=== PATIENT | male | born 1945 | race Caucasian/White ===

== ENCOUNTER → 2017-10-15 | Outpatient (CLI) | payer MEDICARE, OTHER ==
[~2017-10-15] MED LIST: ACIDOPHILUS1 EAC2 PO; AMIO200 PO; ASPI81CH PO; ATOR10 PO; AZIT250 PO; CALCAVITD PO; CEPH500 PO; CIPR500 PO; Coumadin5 MG PO; DIPATR PO; ELIQUIS5 MG PO; ERYT.5TO LEFTEYE; ETOD400 PO; FISH1000 PO; HYDGUAL120 PO; LEVSOD50 PO; LODINE; LOPE2C; MULVITMIND PO; OMEP40CA12 PO; PYRI100 PO; Prinivil5 MG PO; UBID10 PO
== END | disposition home or self-care (01) ==
LOC: LAB EV 08:50
DX: E55.9 Vitamin D deficiency, unspecified (principal)
CPT/HCPCS: 36415; 82306

== ENCOUNTER → 2019-06-18 | Outpatient (CLI) | payer MEDICARE, OTHER ==
[~2019-06-18] MED LIST changes: +ASPI325EC PO; +CALCIUM CIT 311 EACH PO; +Co Q-1010 MG PO; +Complex B-1001 EACH PO; +DAILY VALUE1 EACH PO; +FISH OIL 1,0001 EAC1 PO; +LACT PO; +LEVSOD25 PO; +OMEPRAZOLE20 MG PO; +Prinivil10 MG PO; +VITAMIN D31000 UNIT PO
[2019-06-19 10:32] LABS: Stool Occult Bld Immuno 1 Positive (NEGATIVE); Stool Occult Bld Immuno 2 Positive (NEGATIVE)
== END | disposition home or self-care (01) ==
LOC: LAB EV 10:30
PROVIDERS: Internal Medicine Gastroenterology
DX: R19.5 Other fecal abnormalities (principal); Z86.010 Personal history of colon polyps
CPT/HCPCS: G0328

== ENCOUNTER → 2019-06-19 | Outpatient (CLI) | payer MEDICARE, OTHER ==
[2019-06-20 15:13] LABS: Stool Occult Bld Immuno 1 Positive (NEGATIVE)
== END | disposition home or self-care (01) ==
LOC: LAB SHORT 10:45 → LAB EV 10:45
PROVIDERS: Internal Medicine Gastroenterology
DX: R19.5 Other fecal abnormalities (principal); Z86.010 Personal history of colon polyps
CPT/HCPCS: G0328

== ENCOUNTER 2019-06-21 08:50 | Day surgery (SDC) | payer MEDICARE, OTHER ==
[~2019-06-21] VITALS: Ht 177.8 cm; Wt 84.2 kg
== END 2019-06-21 11:52 | disposition home or self-care (01) ==
LOC: ORSCSDS 08:50
PROVIDERS: Internal Medicine Gastroenterology
PROC: 0DBE8ZX Excision of Large Intestine, Via Natural or Artificial Opening Endoscopic, Diagnostic (ICD-10-PCS; principal; 2019-06-21 10:15)
DX: R19.5 Other fecal abnormalities (principal); Z86.010 Personal history of colon polyps; K57.30 Diverticulosis of large intestine without perforation or abscess without bleeding; K52.9 Noninfective gastroenteritis and colitis, unspecified; I10 Essential (primary) hypertension; E78.5 Hyperlipidemia, unspecified; E03.9 Hypothyroidism, unspecified; Z79.899 Other long term (current) drug therapy; Z79.82 Long term (current) use of aspirin
CPT/HCPCS: 88305; J2704; J7120

== ENCOUNTER → 2019-07-05 | Outpatient (CLI) | payer MEDICARE, OTHER | END | disposition home or self-care (01) | LOC: PLD 08:27 → LAB SHORT 08:27 | DX: L57.0 Actinic keratosis (principal) | CPT/HCPCS: 88305 ==

== ENCOUNTER 2019-07-19 12:20 | Day surgery (SDC) | payer MEDICARE, OTHER ==
[~2019-07-19] VITALS: Ht 177.8 cm; Wt 85.0 kg
== END 2019-07-19 15:00 | disposition home or self-care (01) ==
LOC: ORSCSDS 12:20
PROVIDERS: Internal Medicine Gastroenterology
PROC: 0DJ08ZZ Inspection of Upper Intestinal Tract, Via Natural or Artificial Opening Endoscopic (ICD-10-PCS; principal; 2019-07-19 14:30)
DX: R19.5 Other fecal abnormalities (principal); K57.10 Diverticulosis of small intestine without perforation or abscess without bleeding; K44.9 Diaphragmatic hernia without obstruction or gangrene; I10 Essential (primary) hypertension; E78.5 Hyperlipidemia, unspecified; I48.91 Unspecified atrial fibrillation; E03.9 Hypothyroidism, unspecified; Z79.899 Other long term (current) drug therapy
CPT/HCPCS: J2704; J7120

== ENCOUNTER → 2021-07-17 | Outpatient (CLI) | payer MEDICARE, OTHER | END | disposition home or self-care (01) | LOC: LAB SHORT 13:20 | DX: R05.3 Chronic cough (principal) | CPT/HCPCS: 87070; 87205 ==

== ENCOUNTER → 2021-08-10 | Outpatient (CLI) | payer MEDICARE, OTHER ==
[2021-08-10 14:06] LABS: BASOPHILS ABSOLUTE AUTO 0.03 K/mm3 (0.00-0.23); BASOPHILS PERCENT AUTO 1 % (0-2); EOSINOPHILS ABSOLUTE AUTO 0.03 K/mm3 (0.00-0.68); EOSINOPHILS PERCENT AUTO 1 % (0-6); Hematocrit 49.6 % (37.0-53.0); Hemoglobin 16.4 g/dL (13.5-17.5); IMMATURE GRAN ABSOLUTE AUTO 0.03 K/mm3 (0.00-0.10); IMMATURE GRAN PERCENT AUTO 1 % (0-1); LYMPHOCYTES ABSOLUTE AUTO 0.72 K/mm3 (0.84-5.20); LYMPHOCYTES PERCENT AUTO 11 % (21-46); MONOCYTES ABSOLUTE AUTO 1.02 K/mm3 (0.16-1.47); MONOCYTES PERCENT AUTO 16 % (4-13); Mean Corpuscular HGB 29.8 pg (26.0-34.0); Mean Corpuscular HGB Conc 33.1 g/dL (31.5-36.5); Mean Corpuscular Volume 90 fL (80-100); Mean Platelet Volume 10.4 fL (9.1-12.4); NEUTROPHILS ABSOLUTE AUTO 4.52 K/mm3 (1.96-9.15); NEUTROPHILS PERCENT AUTO 71 % (41-73); Platelet Count 209 K/mm3 (150-400); RDW Coefficient Variation 13.3 % (11.7-14.2); RDW Standard Deviation 44.6 fL (35.1-46.3); White Blood Cell Count 6.35 K/mm3 (4.00-11.30)
[2021-08-10 14:49] LABS: Alanine Aminotransfer (ALT/SGP 36 U/L (12-78); Albumin, Blood 3.5 g/dL (3.4-5.0); Albumin/Globulin Ratio 0.9 (0.8-1.8); Alk Phos 101 U/L (40-126); Anion Gap 8 mmol/L (6-16); Aspartate Aminotrans (AST/SGOT 26 U/L (12-37); Bilirubin, Total 0.8 mg/dL (0.1-1.0); Blood Urea Nitrogen 20 mg/dL (8-24); Bun/Creatinine Ratio 15.4 (12.0-20.0); CO2, Blood 27 mmol/L (21-32); Calcium, Blood 9.2 mg/dL (8.5-10.1); Chloride, Blood 105 mmol/L (98-108); Globulin, Blood 3.9 g/dL (2.2-4.0); Glomerular Filtration Rate 54 (60-); Glucose, Blood 118 mg/dL (70-99); Potassium, Blood 3.9 mmol/L (3.5-5.5); Sodium, Blood 140 mmol/L (136-145); Thyroid Stimulating Hormone 0.859 uIU/mL (0.360-4.800); Total Protein, Blood 7.4 g/dL (6.4-8.2)
[2021-08-10 14:53] LABS: Troponin I <0.017 ng/mL (0.000-0.040)
== END ==
LOC: LAB 13:57 → LAB SHORT 13:57
PROVIDERS: Chiropractor
DX: R07.9 Chest pain, unspecified (principal); R53.83 Other fatigue
CPT/HCPCS: 80053; 83880; 84443; 84484; 85025; 85379

== ENCOUNTER 2022-02-28 06:23 | Day surgery (SDC) | payer MEDICARE, OTHER ==
[~2022-02-28] VITALS: Ht 177.8 cm; Wt 89.0 kg
[~2022-02-28 06:23] MED LIST changes: +ELIQUIS5 M2 PO; +GUAI600T33 PO; +LOSA25 PO; +METO25ER PO; +Zinc Gluconate100 MG PO
[2022-02-28 09:07] LABS: CHOL/HDL RATIO 3.3; Cholesterol 135 mg/dL (50-200); HDL Cholesterol 41 mg/dL (>39); LDL/HDL RATIO 2.2; Low Density Lipoprotein Chol 89 mg/dL (0-110); Triglycerides 24 mg/dL (30-160); Very Low Density Lipoprot Chol 4 mg/dL (6-32)
[2022-02-28] MEDS ORDERED: ATOR40TA PO (10:12)
[2022-02-28] MEDS ORDERED: LOSA50 PO (10:12)
[2022-02-28] MEDS ORDERED: CLOP75 PO (10:13)
[2022-02-28] MEDS ORDERED: PANT20 PO (10:13)
[2022-02-28] MEDS ORDERED: ST. JOSEPH ASPI81 MG PO (10:13)
[2022-02-28] MEDS ORDERED: NITR.4SL SL (10:14)
--- NOTE | 2022-02-28 12:58 | NUR ---
2ND EKG SHOWN TO DR DUMONT. PT OKAYED TO BE DISCHARGED HOME, PT DENIES CHEST PAIN.
--- NOTE | 2022-02-28 13:09 | NUR ---
PT UP TO BATHROOM PER SELF. DENIES CHEST PAIN. HERE HELPING PT GET DRESSED.
--- NOTE | 2022-02-28 13:26 | NUR ---
DISCHARGE WENT OVER WITH AND WITH PT, BOTH VERBALIZE UNDERSTANDING OF INSTRUCTIONS. SALINE LOCK REMOVED WITH CATHETER INTACT. TR BAND REMOVED, SITE STABLE. AREA CKLEANSED AND CLOTH DOT PLACED. ARM BOARD BACK ON AND PT INSTRUCTED TO WEAR FOR 2 DAYS. PT AGREEABLE WITH DISCHARGE INSTRUCTIONS.
== END 2022-02-28 13:25 | disposition home or self-care (01) ==
LOC: MHTC 06:23
PROVIDERS: Internal Medicine Cardiovascular Disease
DX: I25.110 Atherosclerotic heart disease of native coronary artery with unstable angina pectoris (principal); I10 Essential (primary) hypertension; I48.11 Longstanding persistent atrial fibrillation; Z79.01 Long term (current) use of anticoagulants; E78.5 Hyperlipidemia, unspecified
CPT/HCPCS: 76937; 80061; 85347; 93005; 93010; 93306; 93454; 99152; 99153; A9270; C1725; C1769; C1874; C1887; C1894; C9600; J1644; J2250; J3010; J7030; J7040; Q9967

== ENCOUNTER 2025-09-10 02:45 | Emergency (ER) | payer MEDICARE, OTHER ==
[~2025-09-10] VITALS: Ht 177.8 cm; Wt 88.5 kg
[~2025-09-10 02:45] MED LIST changes: +ATOR40TA PO; +CLOP75 PO; +LOSA50 PO; +NITR.4SL SL; +PANT20 PO; +ST. JOSEPH ASPI81 MG PO
[2025-09-10 03:46] LABS: BASOPHILS ABSOLUTE AUTO 0.03 K/mm3 (0.00-0.23); BASOPHILS PERCENT AUTO 1 % (0-2); EOSINOPHILS ABSOLUTE AUTO 0.18 K/mm3 (0.00-0.68); EOSINOPHILS PERCENT AUTO 3 % (0-6); Hematocrit 46.9 % (37.0-53.0); Hemoglobin 14.7 g/dL (13.5-17.5); IMMATURE GRAN ABSOLUTE AUTO 0.01 K/mm3 (0.00-0.10); IMMATURE GRAN PERCENT AUTO 0 % (0-1); LYMPHOCYTES ABSOLUTE AUTO 1.03 K/mm3 (0.84-5.20); LYMPHOCYTES PERCENT AUTO 16 % (21-46); MONOCYTES ABSOLUTE AUTO 0.79 K/mm3 (0.16-1.47); MONOCYTES PERCENT AUTO 13 % (4-13); Mean Corpuscular HGB Conc 31.3 g/dL (31.5-36.5); Mean Corpuscular Volume 94 fL (80-100); NEUTROPHILS ABSOLUTE AUTO 4.25 K/mm3 (1.96-9.15); NEUTROPHILS PERCENT AUTO 67 % (41-73); NRBC ABSOLUTE 0.00 K/mm3 (0.00-0.02); NRBC Auto 0.0 /100 WBC (0.0-0.2); Platelet Count 203 K/mm3 (150-400); RDW Coefficient Variation 13.8 % (11.7-14.2); RDW Standard Deviation 46.8 fL (35.1-46.3)
[2025-09-10 04:04] LABS: Alanine Aminotransfer (ALT/SGP 39.0 U/L (12-78); Albumin, Blood 3.2 g/dL (3.4-5.0); Albumin/Globulin Ratio 1.0 (0.8-1.8); Anion Gap 8.0 mmol/L (3-11); Aspartate Aminotrans (AST/SGOT 29.0 U/L (12-37); Bilirubin, Total 0.6 mg/dL (0.1-1.0); Blood Urea Nitrogen 21.0 mg/dL (8-24); CO2, Blood 24.0 mmol/L (21-32); Calcium, Blood 9.4 mg/dL (8.5-10.1); Chloride, Blood 110.0 mmol/L (98-108); Creatinine, Blood 1.04 mg/dL (0.60-1.20); Globulin, Blood 3.2 g/dL (2.2-4.0); Glucose, Blood 116.0 mg/dL (70-99); Magnesium, Blood 2.0 mg/dL (1.6-2.4); Potassium, Blood 3.9 mmol/L (3.5-5.5); Sodium, Blood 138.0 mmol/L (136-145); Total Protein, Blood 6.4 g/dL (6.4-8.2)
[2025-09-10 04:55] VITALS: BP 130/82
== END 2025-09-10 04:56 | disposition home or self-care (01) ==
LOC: ER 02:45
PROVIDERS: Student in an Organized Health Care Education/Training Program
DX: R07.89 Other chest pain (principal); T46.7X5A Adverse effect of peripheral vasodilators, initial encounter; I10 Essential (primary) hypertension; E03.9 Hypothyroidism, unspecified; Z79.02 Long term (current) use of antithrombotics/antiplatelets; Z79.82 Long term (current) use of aspirin; Z79.899 Other long term (current) drug therapy
CPT/HCPCS: 71045; 80053; 83690; 83735; 84484; 85025; 93005; 93010; 99285-25